=== PATIENT | male | born 1985 | race Two or more races ===

== ENCOUNTER 2021-09-12 16:05 | Emergency (ER) | payer MEDICAID ==
[~2021-09-12] VITALS: Ht 157.5 cm; Wt 70.8 kg
[2021-09-12] MEDS ORDERED: CEPH500T PO (16:27)
[2021-09-12] MEDS ORDERED: TRIA15OI9 TP (16:27)
[2021-09-12] MEDS ORDERED: SULF1TAB48 PO (16:27)
--- NOTE | 2021-09-12 16:33 | NUR ---
Patient discharged to home in stable condition with brisk steady gait. Written and verbal after care instructions given. Patient verbalized understanding and compliance of instructions. Stressed follow up with primary doctor or return to ER for worsening s/s.
== END 2021-09-12 16:36 | disposition home or self-care (01) ==
LOC: ER 16:05
DX: R21 Rash and other nonspecific skin eruption (principal)
CPT/HCPCS: A4663